=== PATIENT | male | born 1990 | race Caucasian/White ===

== ENCOUNTER 2019-05-09 18:29 | Emergency (ER) | payer SELFPAY ==
[~2019-05-09] VITALS: Ht 180.3 cm; Wt 73.0 kg
[2019-05-09 18:52] VITALS: BP 127/69; PULSE 61; RESP 18; Ht 180.3 cm; Wt 73.0 kg
[2019-05-09] MEDS ORDERED: CEPH-443 PO (19:39)
--- NOTE | 2019-05-09 19:47 | ERD ---
ER Documentation Chief Complaint Chief Complaint swelling right 5th finger, states punctured wound x 6 days HPI 28-year-old male presented to the emergency department complaining of redness and swelling and discharge from the ventral aspect of the right fifth finger for the past 6 days after puncture wound with a screw. Patient states the screw was new and had never been used. He reports associated 1/10 severity pain which is constant. His tetanus is up-to-date within the last 5 years. He denies any fevers or chills or other symptoms or injuries at this time. He has tried no medication for relief of symptoms at home. ROS All systems reviewed and are negative except as per history of present illness. Medications Home Meds Active Scripts Cephalexin* (Keflex*) 500 Mg Capsule, 500 MG PO QID for 5 Days, CAP Prov:FRANCA CONNOLLY PA-C 05/09/19 Allergies Allergies: Coded Allergies: No Known Drug Allergies (Verified Allergy, Unknown, 05/09/19) PMhx/Soc Medical and Surgical Hx: pt denies Medical Hx, pt denies Surgical Hx History of Surgery: No Anesthesia Reaction: No Hx Neurological Disorder: No Hx Respiratory Disorders: No Hx Cardiac Disorders: No Hx Psychiatric Problems: No Hx Miscellaneous Medical Probl: No Hx Alcohol Use: Yes Hx Substance Use: No Hx Tobacco Use: No Smoking Status: Never smoker FmHx Family History: No diabetes Physical Exam Vitals Vital Signs Date Temp Pulse Resp B/P (MAP) Pulse Ox O2 O2 Flow FiO2 Time Delivery Rate 05/09/19 98.0 61 18 127/69 98 18:52 (88) Physical Exam Const: No acute distress Head: Atraumatic Eyes: Normal Conjunctiva ENT: Normal External Ears, Nose and Mouth. Neck: Full range of motion. No meningismus. Resp: No respiratory distress. Skin: No petechiae or rashes Ext: Small area of induration and erythema with centralized puncture wound on the ventral aspect of the right fifth finger just distal to the MCP joint. There is no lymphatic streaking. No significant warmth. No active drainage. Neur: Awake and alert Psych: Normal Mood and Affect Procedures/MDM 28-year-old male presenting to the emergency department with signs and symptoms most consistent with cellulitis of the right fifth finger. No evidence of ascending cellulitis, necrotizing fasciitis, compartment syndrome, deep space infection, or other emergencies. No indication for incision and drainage at this time as the area is indurated. Patient will be placed on Keflex and treated as an outpatient. He was advised to have 2-day wound check with his primary care physician and return to the department immediately for any new or worsening or concerning symptoms. The patient was in agreement with the diagnosis, plan, need for follow-up, return precautions. Departure Diagnosis: Primary Impression: Cellulitis of right little finger Additional Impression: Puncture wound Condition: Fair Patient Instructions: Puncture Wound, General Referrals: [facility] YOU HAVE RECEIVED A MEDICAL SCREENING EXAM AND THE RESULTS INDICATE THAT YOU DO NOT HAVE A CONDITION THAT REQUIRES URGENT TREATMENT IN THE EMERGENCY DEPARTMENT. FURTHER EVALUATION AND TREATMENT OF YOUR CONDITION CAN WAIT UNTIL YOU ARE SEEN IN YOUR DOCTORS OFFICE WITHIN THE NEXT 1-2 DAYS. IT IS YOUR RESPONSIBILITY TO MAKE AN APPOINTMENT FOR FOLOW-UP CARE. IF YOU HAVE A PRIMARY DOCTOR --you should call your primary doctor and schedule an appointment IF YOU DO NOT HAVE A PRIMARY DOCTOR YOU CAN CALL OUR PHYSICIAN REFERRAL HOTLINE AT IF YOU CAN NOT AFFORD TO SEE A PHYSICIAN YOU CAN CHOSE FROM THE FOLLOWING [facility] [address] [facility]. [facility] [address] [facility] [facility] [address] [facility] [facility] [address] [facility]. [facility] [address] [facility]. [facility]. [address] Additional Instructions: Call your primary care doctor TOMORROW for an appointment during the next 1-2 days.See the doctor sooner or return here if your condition worsens before your appointment time. FRANCA CONNOLLY PA-C May 09, 2019 19:47
== END 2019-05-09 19:51 | disposition home or self-care (01) ==
LOC: FTE 18:29
DX: S61.234A Puncture wound without foreign body of right ring finger without damage to nail, initial encounter (principal); W22.8XXA Striking against or struck by other objects, initial encounter; Y92.9 Unspecified place or not applicable
CPT/HCPCS: 99283